=== PATIENT | female | born 1990 ===

== ENCOUNTER 2020-02-01 07:30 | Inpatient (IN) | payer BC ==
[2020-02-01] MEDS ORDERED: AMPICILLIN - 2 GM in SODIUM CHLORIDE 100 ML IVPB ONE (07:57)
[2020-02-01] MEDS ORDERED: ELECTROLYTE-148 SOLN 1,000 ML IV SCH (08:00)
--- NOTE | 2020-02-01 08:05 | HP ---
Past Medical History - Primary Care Physician PCP:: Jose Tran - Admission Chief Complaint: 38 weeks, rom, labor History of Present Illness: 29 yo f 38.4 weeks with ROM ,clear since 725 am today, has mild contraction , no bleeding, no fever. no dysuria, cx 3 cm, 80 vx -2 mr, clear fluid , fhr cat 1, irregular contraction hx of GBS positive , GDM, diet controlled History Source: Patient Limitations to Obtaining History: No Limitations - Past Medical History ...: 1 ...Para: 0 ... Weeks Gestation by Dates: 38.4 ...EDC by Sono: 02/11/20 - Past Surgical History Hx Myomectomy: No Hx Transabdominal Cerclage: No - Smoking History Have you smoked in the past 12 months: No - Alcohol/Substance Use Hx Alcohol Use: No History of Substance Use: reports: None - Social History Usual Living Arrangement: Yes: With Spouse History of Recent Travel: No Home Medications - Allergies Allergies/Adverse Reactions: Allergies Allergy/AdvReac Type Severity Reaction Status Date / Time No Known Allergies Allergy Verified 02/01/20 08:04 - Home Medications Home Medications: Ambulatory Orders Vit 93/Iron Fum/Folic [ Formula Tablet] 1 each PO DAILY 02/01/20 Review of Systems - Review of Systems Constitutional: reports: No Symptoms Eyes: reports: No Symptoms HENT: reports: No Symptoms Neck: reports: No Symptoms Cardiovascular: reports: No Symptoms Respiratory: reports: No Symptoms Gastrointestinal: reports: No Symptoms Genitourinary: reports: No Symptoms Breasts: reports: No Symptoms Reported Musculoskeletal: reports: No Symptoms Integumentary: reports: No Symptoms Neurological: reports: No Symptoms Endocrine: reports: No Symptoms Hematology/Lymphatic: reports: No Symptoms Psychiatric: reports: No Symptoms Physical Exam - Maternity Constitutional: Yes: Well Nourished, No Distress, Calm Eyes: Yes: WNL, Conjunctiva Clear, EOM Intact HENT: Yes: WNL, Atraumatic, Normocephalic Neck: Yes: WNL, Supple, Trachea Midline Cardiovascular: Yes: WNL, Regular Rate and Rhythm Breast(s): Yes: WNL - Abdominal Exam/OB Fundal Height: 38 Number of Fetuses: Single Presentation: Vertex Contractions: Yes Regularity: Irregular Intensity: Moderate Monitor Mode: External Heart Rate Location: [facility] Category: I Accelerations: Non-Uniform Decelerations: None - Vaginal Exam/OB Vaginal Bleeding: No Speculum Exam: No Dilatation (cm): 3 Effacement (%): 80 Amniotic Membrane Status: Ruptured Nitrazine Test: Positive Amniotic Fluid: Yes: Clear Presentation: Vertex/Position Station: -2 - Physical Exam Musculoskeletal: Yes: WNL Extremities: Yes: WNL Edema: Yes Edema: LLE: Trace, RLE: Trace Deep Tendon Reflex Grade: Normal +2 Psychiatric: Yes: WNL Hemorrhage Risk Assessment - Risk Factors Medium Risk Factors: Yes: None High Risk Factors: Yes: None Risk Score: 1 Risk Level: Medium Risk Problem List - Problems (1) with 38 completed weeks gestation Code(s): Z3A.38 - 38 WEEKS GESTATION OF (2) PROM (premature rupture of membranes) Code(s): O42.90 - ODALIS ROM, 7TH0 BETW RUPT & ONST LABR, UNSP WEEKS OF GEST Qualifiers: PROM onset of labor timing: onset of labor within 24 hours of rupture PROM gestational age: full term Qualified Code(s): O42.02 - Full-term premature rupture of membranes, onset of labor within 24 hours of rupture (3) Gestational diabetes Code(s): O24.419 - GESTATIONAL DIABETES MELLITUS IN , UNSP CONTROL Qualifiers: Gestational diabetes mellitus control: diet-controlled Trimester: third trimester Qualified Code(s): O24.410 - Gestational diabetes mellitus in , diet controlled Assessment/Plan admit FHM GBS prophylaxis pain management pitocin discussed , risks associated with pitocin discussed
[2020-02-01] MEDS ORDERED: OXYTOCIN 30 UNITS in 0.9% NS 30 UNIT/500 ML INFUS.BAG IVPB SCH (08:15)
[2020-02-01 08:17] VITALS: BMI 25.7
[2020-02-01 08:59] LABS: INR 0.85 (0.83-1.09)
[2020-02-01 09:01] LABS: ACTIVATED PTT 29.4 SECONDS (25.2-36.5)
[2020-02-01 09:02] LABS: BASO % 0.3 % (0-2.0); EOS % 1.4 % (0-4.5); HEMOGLOBIN 14.4 GM/dL (10.7-15.3); LYMPH % 21.8 % (8-40); MCH 31.3 pg (25.7-33.7); MCHC 33.4 g/dl (32.0-36.0); MEAN CELL VOLUME 93.7 fl (80-96); MEAN PLT VOLUME 11.2 fl (7.5-11.1); MONO % 7.1 % (3.8-10.2); NEUT % 69.4 % (42.8-82.8); PLATELET COUNT 163 K/MM3 (134-434); RBC 4.59 M/mm3 (3.60-5.2); RDW 14.4 % (11.6-15.6); WHITE BLOOD COUNT 7.2 K/mm3 (4.0-10.0)
[2020-02-01 09:16] LABS: CALCIUM 9.1 mg/dL (8.5-10.1); CREATININE 0.7 mg/dL (0.55-1.3); POTASSIUM 4.1 mmol/L (3.5-5.1)
[2020-02-01] MEDS ORDERED: NALOXONE HCL 0.4 MG/ML VIAL IVPUSH PRN (09:18)
[2020-02-01] MEDS ORDERED: PCA PUMP NR ONE (09:19)
[2020-02-01] MEDS ORDERED: FENTANYL/BUPIVACAINE/NS/PF - PCEA - 50 ML DISP.SYRIN EP ONE ×2 (09:19→13:29)
[2020-02-01] MEDS ORDERED: BUPIVACAINE HCL/PF 0.25% (2.5MG/ML) 10 ML VIAL ONE (09:20)
[2020-02-01] MEDS: FENTANYL/BUPIVACAINE/NS/PF - PCEA - 50 ML DISP.SYRIN EP SCH (09:40)
[2020-02-01] MEDS ORDERED: AMPICILLIN SODIUM 2 GM VIAL ONE (10:00)
[2020-02-01] MEDS ORDERED: OXYTOCIN 30 UNITS in 0.9% NS 30 UNIT/500 ML INFUS.BAG IVPB ONE (11:04)
[2020-02-01] MEDS: AMPICILLIN - 1 GM in SODIUM CHLORIDE 100 ML IVPB SCH ×2 (12:05→16:50)
[2020-02-01] MEDS ORDERED: AMPICILLIN SODIUM 1 GM VIAL ONE (12:12)
[2020-02-01] MEDS ORDERED: LIDOCAINE HCL 1% PRESERVATIVE FREE - 30ML VIAL ONE (13:35)
[2020-02-01] MEDS ORDERED: OXYTOCIN 20 UNITS in 0.9% NS 20 UNIT/1,000 ML INFUS.BAG IV ONE (13:35)
--- NOTE | 2020-02-01 14:12 | PN ---
Progress Note (short form) - Note Progress Note: cx full , 100 vx 2+ , fhr cat 1, pushing Problem List - Problems (1) with 38 completed weeks gestation Code(s): Z3A.38 - 38 WEEKS GESTATION OF (2) PROM (premature rupture of membranes) Code(s): O42.90 - ODALIS ROM, 7TH0 BETW RUPT & ONST LABR, UNSP WEEKS OF GEST Qualifiers: PROM onset of labor timing: onset of labor within 24 hours of rupture PROM gestational age: full term Qualified Code(s): O42.02 - Full-term premature rupture of membranes, onset of labor within 24 hours of rupture (3) Gestational diabetes Code(s): O24.419 - GESTATIONAL DIABETES MELLITUS IN , UNSP CONTROL Qualifiers: Gestational diabetes mellitus control: diet-controlled Trimester: third trimester Qualified Code(s): O24.410 - Gestational diabetes mellitus in , diet controlled
[2020-02-01] MEDS ORDERED: BISACODYL 10 MG SUPP.RECT RC PRN (14:49)
[2020-02-01] MEDS ORDERED: METHYLERGONOVINE MALEATE 0.2 MG/1 ML AMP IM PRN (14:49)
[2020-02-01] MEDS ORDERED: BENZOCAINE 28 GM HEMORRHOIDAL OINTMENT TP PRN (14:49)
[2020-02-01] MEDS ORDERED: WITCH HAZEL 50% (TUCKS) 40 PAD/JAR PAD TP PRN (14:49)
[2020-02-01] MEDS ORDERED: BENZOCAINE 20% 57 GM BOTTLE TP PRN (14:49)
[2020-02-01] MEDS ORDERED: oxyCODONE HCL 5 MG TABLET PO PRN (14:51)
--- NOTE | 2020-02-01 14:55 | PN ---
Delivery - Delivery Vaginal Delivery: Spontaneous Type of Anesthesia: Local, Epidural Episiotomy/Laceration: Midline (cx full, head on pernium, median episiotomy done, head delivered STEPHANY, no cord, ant and post. shoulder with no difficulty , live baby girl apgaar / , median episiotomy in 3 layers with 2o chromic, no complication, ebl 400cc , baby bonded with mom) Delivery, Single - Feeding Plan Initial Plan: Elected not to breastfeed exclusively throughout hospitalization
[2020-02-01] MEDS ORDERED: ACETAMINOPHEN 325 MG TABLET (FP) ONE (14:57)
[2020-02-01] MEDS ORDERED: IBUPROFEN 600 MG TABLET (FP) PO ONE (14:57)
[2020-02-01] MEDS: ACETAMINOPHEN 325 MG TABLET (FP) PO PRN (15:00)
[2020-02-01] MEDS: IBUPROFEN 600 MG TABLET (FP) PO PRN (15:00)
[2020-02-01 15:35] LABS: CORD BASE EXCESS -3.6 mmol/L (0-2); CORD HCO3 24.4 mmHg (20-29); CORD PCO2 56.2 mmHg (30-78); CORD pH 7.256 (7.14-7.44)
[2020-02-01 15:37] LABS: CORD BASE EXCESS -5.8 mmol/L (0-2); CORD HCO3 18.6 mmHg (20-29); CORD PCO2 33.6 mmHg (30-78); CORD pH 7.362 (7.14-7.44)
[2020-02-01] MEDS: FERROUS SO4 325 MG TABLET (FP) PO SCH (21:25)
[2020-02-02] MEDS: ACETAMINOPHEN 325 MG TABLET (FP) PO PRN ×4 (01:33→23:10)
[2020-02-02] MEDS: IBUPROFEN 600 MG TABLET (FP) PO PRN ×4 (01:33→23:10)
[2020-02-02] MEDS: PRENATAL VITAMINS W/ FOLIC ACID TABLET (FP) PO SCH (09:19)
[2020-02-02] MEDS: FERROUS SO4 325 MG TABLET (FP) PO SCH ×2 (09:19→21:34)
[2020-02-02 09:57] LABS: BASO % 0.6 % (0-2.0); EOS % 0.8 % (0-4.5); HEMATOCRIT 38.6 % (32.4-45.2); HEMOGLOBIN 12.9 GM/dL (10.7-15.3); LYMPH % 16.8 % (8-40); MCH 31.8 pg (25.7-33.7); MCHC 33.3 g/dl (32.0-36.0); MEAN CELL VOLUME 95.3 fl (80-96); MEAN PLT VOLUME 11.8 fl (7.5-11.1); MONO % 4.8 % (3.8-10.2); PLATELET COUNT 145 K/MM3 (134-434); RBC 4.06 M/mm3 (3.60-5.2); RDW 14.2 % (11.6-15.6); WHITE BLOOD COUNT 12.4 K/mm3 (4.0-10.0)
--- NOTE | 2020-02-02 10:36 | PN ---
Progress Note (short form) - Note Progress Note: ppd 1 , doing well, no c/o, voids ok, no excess vaginal bleeding CBC, BMP 02/02/20 08:03 02/01/20 08:21 Last Vital Signs Temp Pulse Resp BP Pulse Ox 97.6 F 74 18 112/74 100 02/02/20 06:00 02/02/20 06:00 02/02/20 06:00 02/02/20 06:00 02/01/20 15:40 abdomen soft, non tender , no cva uterus non tender lochia mild, no calf tenderness plan ambulate plan for d/c home in am Problem List - Problems (1) with 38 completed weeks gestation Code(s): Z3A.38 - 38 WEEKS GESTATION OF (2) PROM (premature rupture of membranes) Code(s): O42.90 - ODALIS ROM, 7TH0 BETW RUPT & ONST LABR, UNSP WEEKS OF GEST Qualifiers: PROM onset of labor timing: onset of labor within 24 hours of rupture PROM gestational age: full term Qualified Code(s): O42.02 - Full-term premature rupture of membranes, onset of labor within 24 hours of rupture (3) Gestational diabetes Code(s): O24.419 - GESTATIONAL DIABETES MELLITUS IN , UNSP CONTROL Qualifiers: Gestational diabetes mellitus control: diet-controlled Trimester: third trimester Qualified Code(s): O24.410 - Gestational diabetes mellitus in , diet controlled
[2020-02-02] MEDS ORDERED: SENNOSIDES/DOCUSATE COMBO (SENNA PLUS) TABLET (UD) PO PRN (22:00)
[2020-02-03] MEDS: FENTANYL/BUPIVACAINE/NS/PF - PCEA - 50 ML DISP.SYRIN EP SCH (08:24)
[2020-02-03] MEDS: AMPICILLIN - 1 GM in SODIUM CHLORIDE 100 ML IVPB SCH (08:25)
[2020-02-03 09:11] VITALS: BP 129/79; PULSE 75; TEMP 97.7
[2020-02-03] MEDS: FERROUS SO4 325 MG TABLET (FP) PO SCH (10:58)
[2020-02-03] MEDS: PRENATAL VITAMINS W/ FOLIC ACID TABLET (FP) PO SCH (10:58)
[2020-02-03] MEDS: ACETAMINOPHEN 325 MG TABLET (FP) PO PRN (11:32)
[2020-02-03] MEDS: IBUPROFEN 600 MG TABLET (FP) PO PRN (11:33)
--- NOTE | 2020-02-03 14:02 | DS ---
Physical Exam-[employer] Vital Signs: Vital Signs Temperature 97.7 F 02/03/20 09:00 Pulse Rate 75 02/03/20 09:00 Respiratory Rate 18 02/03/20 09:00 Blood Pressure 129/79 02/03/20 09:00 O2 Sat by Pulse Oximetry (%) 97 02/02/20 09:25 Uterus: Yes: Normal, Enlarged ....Post : Yes: Uterus firm, Uterus non-tender, Slight lochia rubra Edema: No Neurological: Yes: WNL ...Motor Strength: WNL Psychiatric: Yes: WNL Labs: CBC, BMP 02/02/20 08:03 02/01/20 08:21 Delivery - Delivery Vaginal Delivery: Spontaneous Type of Anesthesia: Local, Epidural Episiotomy/Laceration: Midline (cx full, head on pernium, median episiotomy done, head delivered STEPHANY, no cord, ant and post. shoulder with no difficulty , live baby girl apgaar 02/26 , median episiotomy in 3 layers with 2o chromic, no complication, ebl 400cc , baby bonded with mom) EBL (cc): 400 Delivery, Single - Stages of Labor Date 1st Stage Initiatied: 01/31/20 Time 1st Stage Initiated: 19:00 Date 2nd Stage Initiated: 02/01/20 Time 2nd Stage Initiated: 07:00 Date of Delivery: 02/01/20 Time of Delivery: 14:24 Time Placenta Delivered: 14:25 Placenta: Yes: Spontaneous - Condition of Infant Product Development Consultant/Cutter Operator Present: No Infant Gender: Female Weight: 6 lb 6 oz Position: Left, OA Total Hours ROM (Hrs/Mins): 7 hrs - 1 Minute Total Score: 9 5 Minutes Total Score: 9 - Feeding Plan Initial Plan: Elected not to breastfeed exclusively throughout hospitalization Discharge Summary Problems reviewed: Yes Reason For Visit: LABOR ADMIT Current Active Problems Gestational diabetes (Acute) PROM (premature rupture of membranes) (Acute) with 38 completed weeks gestation (Acute) Procedures: Principal: Hospital Course: no complication Health Concerns: GDM Plan of Treatment: follow up office 4 weeks, GCT 6 weeks PP Condition: Good - Instructions Diet, Activity, Other Instructions: regular diet, no intercourse, follow up office 4 weeks, if fever, heavy vaginal bleeding call Referrals: Jose Tran MD [Staff Physician] - Disposition: HOME - Home Medications Comprehensive Discharge Medication List: Ambulatory Orders Vit 93/Iron Fum/Folic [ Formula Tablet] 1 each PO DAILY 02/01/20 Ibuprofen [Motrin -] 600 mg PO QID #28 tablet 02/02/20
[2020-02-04 07:17] LABS: POC NITRAZINE POS
== END 2020-02-03 14:10 | disposition home or self-care (01) | DRG 807 ==
LOC: JLDR 07:30 → J3W 17:50
PROVIDERS: ADMIT Obstetrics & Gynecology; ATTEND Obstetrics & Gynecology
PROC: 0W8NXZZ Division of Female Perineum, External Approach (ICD-10-PCS; principal; 2020-02-01)
PROC: 10E0XZZ Delivery of Products of Conception, External Approach (ICD-10-PCS; 2020-02-01)
DX: O42.02 Full-term premature rupture of membranes, onset of labor within 24 hours of rupture (principal); Z37.0 Single live birth; O24.420 Gestational diabetes mellitus in childbirth, diet controlled; O99.824 Streptococcus B carrier state complicating childbirth; Z3A.38 38 weeks gestation of pregnancy
CPT/HCPCS: 36415; 36600; 59409; 80048; 82803; 82962; 83986-QW; 85025; 85610; 85730; 86780; 86850; 86900; 86901; U0003

== ENCOUNTER 2020-12-31 22:39 | Emergency (ER) | payer BC ==
[2020-12-31 22:51] VITALS: BP 104/68; PULSE 98; TEMP 97.9; BMI 24.5
== END 2021-01-01 | disposition left against medical advice (07) ==
LOC: JER 22:39
DX: O26.892 Other specified pregnancy related conditions, second trimester (principal); R10.2 Pelvic and perineal pain; Z3A.15 15 weeks gestation of pregnancy
CPT/HCPCS: 99281-25

== ENCOUNTER 2021-05-28 18:05 | Inpatient (IN) | payer BC, OTHER ==
[2021-05-28] MEDS ORDERED: OXYTOCIN 20 UNITS in 0.9% NS 20 UNIT/1,000 ML INFUS.BAG IV ONE ×2 (18:34→20:37)
[2021-05-28 18:37] VITALS: BMI 27.8
[2021-05-28 18:52] LABS: BASO % 0.4 % (0-2.0); EOS % 1.7 % (0-4.5); HEMATOCRIT 43.4 % (32.4-45.2); HEMOGLOBIN 15.1 GM/dL (10.7-15.3); LYMPH % 24.6 % (8-40); MCH 32.2 pg (25.7-33.7); MCHC 34.7 g/dl (32.0-36.0); MONO % 8.3 % (3.8-10.2); PLATELET COUNT 194 10^3/uL (134-434); RBC 4.67 M/mm3 (3.60-5.2); RDW 13.9 % (11.6-15.6)
[2021-05-28 18:58] LABS: INR 0.92 (0.83-1.09); PROTHROMBIN TIME (PATIENT) 10.3 SEC (9.7-13.0)
[2021-05-28 19:01] LABS: ACTIVATED PTT 29.4 SECONDS (25.2-36.5)
[2021-05-28 19:16] LABS: CALCIUM 9.3 mg/dL (8.5-10.1)
[2021-05-28 19:17] LABS: ALBUMIN 2.7 g/dl (3.4-5.0); BLOOD UREA NITROGEN 10.6 mg/dL (7-18)
[2021-05-28 19:20] LABS: CREATININE 0.5 mg/dL (0.55-1.3)
[2021-05-28 19:21] LABS: BILIRUBIN,TOTAL 0.3 mg/dL (0.2-1); TOT PROT 6.8 g/dl (6.4-8.2)
[2021-05-28] MEDS ORDERED: BENZOCAINE 20% 57 GM BOTTLE TP PRN ×2 (19:35→19:39)
[2021-05-28] MEDS ORDERED: METHYLERGONOVINE MALEATE 0.2 MG/1 ML AMP IM PRN ×2 (19:35→19:39)
[2021-05-28] MEDS ORDERED: oxyCODONE HCL 5 MG TABLET PO PRN ×2 (19:35→19:39)
[2021-05-28] MEDS ORDERED: IBUPROFEN 600 MG TABLET (FP) PO PRN (19:35)
[2021-05-28] MEDS ORDERED: BENZOCAINE 28 GM HEMORRHOIDAL OINTMENT TP PRN ×2 (19:35→19:39)
[2021-05-28] MEDS ORDERED: WITCH HAZEL 50% (TUCKS) 40 PAD/JAR PAD TP PRN ×2 (19:35→19:39)
[2021-05-28] MEDS ORDERED: BISACODYL 10 MG SUPP.RECT RC PRN ×2 (19:35→19:39)
[2021-05-28] MEDS ORDERED: ACETAMINOPHEN 325 MG TABLET (FP) PO PRN ×2 (19:35→19:39)
[2021-05-28] MEDS ORDERED: OXYTOCIN 20 UNITS in 0.9% NS 20 UNIT/1,000 ML INFUS.BAG IV SCH ×2 (19:45)
[2021-05-28 20:10] LABS: HIV INTERPRETATION NEGATIVE (NEGATIVE)
[2021-05-28] MEDS: IBUPROFEN 600 MG TABLET (FP) PO PRN (21:09)
[2021-05-28 21:52] LABS: URINE APPEARANCE CLEAR; URINE BILIRUBIN NEGATIVE (NEGATIVE); URINE COLOR YELLOW; URINE GLUCOSE (UA) NEGATIVE (NEGATIVE); URINE KETONE TRACE (NEGATIVE); URINE LEUK ESTERASE NEGATIVE (NEGATIVE); URINE NITRITE NEGATIVE (NEGATIVE); URINE PROTEIN NEGATIVE (NEGATIVE); URINE UROBILINOGEN 0.2 mg/dL (0.2-1.0)
[2021-05-29] MEDS: IBUPROFEN 600 MG TABLET (FP) PO PRN ×4 (03:40→23:36)
[2021-05-29 07:14] LABS: BASO % 0.2 % (0-2.0); EOS % 1.7 % (0-4.5); HEMATOCRIT 36.9 % (32.4-45.2); HEMOGLOBIN 12.8 GM/dL (10.7-15.3); LYMPH % 19.8 % (8-40); MCH 32.7 pg (25.7-33.7); MCHC 34.8 g/dl (32.0-36.0); MEAN CELL VOLUME 94.1 fl (80-96); MEAN PLT VOLUME 10.5 fl (7.5-11.1); NEUT % 71.3 % (42.8-82.8); PLATELET COUNT 177 10^3/uL (134-434); RBC 3.92 M/mm3 (3.60-5.2); RDW 13.8 % (11.6-15.6); WHITE BLOOD COUNT 10.1 K/mm3 (4.0-10.0)
[2021-05-29] MEDS ORDERED: SENNOSIDES/DOCUSATE COMBO (SENNA PLUS) TABLET (UD) PO PRN ×2 (22:00)
[2021-05-30 08:48] VITALS: BP 129/81; PULSE 102; TEMP 97.6
== END 2021-05-30 13:25 | disposition home or self-care (01) | DRG 807 ==
LOC: JLDR 18:05 → J3W 20:19
PROVIDERS: ADMIT Obstetrics & Gynecology; ATTEND Obstetrics & Gynecology
PROC: 10E0XZZ Delivery of Products of Conception, External Approach (ICD-10-PCS; principal; 2021-05-28)
PROC: 0HQ9XZZ Repair Perineum Skin, External Approach (ICD-10-PCS; 2021-05-28)
PROC: 0W8NXZZ Division of Female Perineum, External Approach (ICD-10-PCS; 2021-05-28)
DX: O70.0 First degree perineal laceration during delivery (principal); Z37.0 Single live birth; Z3A.38 38 weeks gestation of pregnancy
CPT/HCPCS: 36415; 59409; 80053; 81003; 85025; 85610; 85730; 86762; 86780; 86850; 86900; 86901; 87340; 87389; C9803; U0003; U0005